=== PATIENT | female | born 2000 | race Two or more races ===

== ENCOUNTER 2022-08-10 20:09 | Emergency (ER) | payer MEDICAID ==
[~2022-08-10] VITALS: Ht 157.5 cm; Wt 54.1 kg
[2022-08-10 22:29] VITALS: BP 139/78
== END 2022-08-10 23:00 | disposition home or self-care (01) ==
LOC: ER 20:09
DX: J32.9 Chronic sinusitis, unspecified (principal); B97.89 Other viral agents as the cause of diseases classified elsewhere